=== PATIENT | female | born 1970 | race Caucasian/White ===

== ENCOUNTER 2018-02-08 10:15 | Day surgery (SDC) | payer BC ==
[2018-01-31 11:08] VITALS: BMI 34.7
[2018-02-08] MEDS ORDERED: CEFAZOLIN/Water 2 GM/20 ML SYRINGE ONE (10:55)
[2018-02-08] MEDS ORDERED: Heparin 5,000 UNITS/ML VIAL ONE (10:55)
[2018-02-08] MEDS ORDERED: Midazolam HCl 2 mg/2 ml Vial ONE (10:56)
[2018-02-08] MEDS ORDERED: Fentanyl 100 MCG/2 ML VIAL ONE ×6 (10:56→17:38)
[2018-02-08] MEDS ORDERED: HYDROcodone/Acetaminophen 10/325 mg Tablet PO PRN ×2 (11:57)
[2018-02-08] MEDS ORDERED: Promethazine HCl 25 MG/ML VIAL IM PRN (11:57)
[2018-02-08] MEDS ORDERED: Fentanyl 100 MCG/2 ML VIAL SLOW IVP PRN (11:57)
[2018-02-08] MEDS ORDERED: Zolpidem Tartrate 5 MG TAB PO PRN (11:57)
[2018-02-08] MEDS ORDERED: Ondansetron HCl/PF 4 MG/2 ML Vial IVP PRN (11:57)
[2018-02-08] MEDS ORDERED: traMADol HCl 50 MG TAB PO PRN ×2 (11:57)
[2018-02-08] MEDS ORDERED: Ropivacaine 0.2% 550 ML 550 ML NERVE BLCK SCH ×2 (11:57→12:00)
[2018-02-08] MEDS ORDERED: Ketorolac Tromethamine 30 MG/ML VIAL IVP SCH (12:00)
[2018-02-08] MEDS ORDERED: Ropivacaine 0.2% HCl/PF 20 ML ONE ×2 (13:09→17:44)
[2018-02-08] MEDS ORDERED: Bupivacaine/Epinephrine 0.25% 30 ML VIAL ONE ×2 (13:18→13:24)
[2018-02-08] MEDS ORDERED: Gentamicin 80 MG/2 ML VIAL ONE (13:18)
[2018-02-08] MEDS ORDERED: Sodium Chloride 0.9% 20 ML ONE (13:24)
[2018-02-08] MEDS ORDERED: Ropivacaine 0.5% HCl/PF (150 MG/30 ML VIAL) ONE (17:10)
[2018-02-08] MEDS ORDERED: Ketorolac Tromethamine 30 MG/ML VIAL ONE (17:23)
[2018-02-08] MEDS ORDERED: Lidocaine 1% PF 5 ML VIAL ONE (17:23)
[2018-02-08] MEDS ORDERED: PROPOFOL 200 MG/20 ML VIAL ONE (17:23)
--- NOTE | 2018-02-09 11:16 | OP ---
DATE OF PROCEDURE: 02/08/2018 PREOPERATIVE DIAGNOSES: 1. Breast cancers. 2. Status post left chest radiation. PROCEDURES: 1. Placement of bilateral breast implants for delayed reconstruction (85207.50). 2. Scar revision of right breast (19 cm), (10274, 62908 x3). OPERATIVE FINDINGS: 1. Right breast implant [place], reference #[id number], serial #[id number]. 2. Left breast implant, reference #[id number], serial #[id number]. DESCRIPTION OF PROCEDURE: Following induction of adequate anesthesia, the patient was prepped and dr aped in usual sterile fashion in the supine position. Attention was first turned to the left breast. muscle was inspected. Muscle did not to perform a submuscular breast reconstruction. Therefore, adequate submuscular pocket was created with release of the inferior attachments of the p ectoralis major muscle. A great deal of scar tissue was made where it was encountered on the axillar y portion of the dissection at approximately the mastectomy scar line. This scar had to be extensive ly relieved to allow for adequate pocket. Pocket was copiously irrigated with antibiotic solut ion Betadine appropriate fit. contralateral right side, similar procedure was per formed. dissecting the scar. The patient had some sort of wound healing difficulty. This left her wi th a significant contour deformity, a large approximately 5 cm x 3 cm x cm deep. The m ost appropriate contour was done by excising the old scar and de-epithelializing a large ellipse of s kin including the old scar and then closing this in a alyov-exem-utbi fashion and layered with 3-0 Mo nocryl suture followed by running 3-0 Monocryl suture for the skin. The skin was also copiously irr igated and inspected for meticulous hemostasis prior to the closure. The patient tolerated the proce dure well .
== END 2018-02-08 19:28 | disposition home or self-care (01) ==
LOC: SDC 10:15
PROVIDERS: ATTEND Plastic Surgery
PROC: 0HBTXZZ (ICD-10-PCS; principal; 2018-02-08)
PROC: 0HRV0JZ Replacement of Bilateral Breast with Synthetic Substitute, Open Approach (ICD-10-PCS; principal; 2018-02-08)
DX: Z42.1 Encounter for breast reconstruction following mastectomy (principal); C50.919 Malignant neoplasm of unspecified site of unspecified female breast; E78.5 Hyperlipidemia, unspecified; F32.9 Major depressive disorder, single episode, unspecified; F41.9 Anxiety disorder, unspecified; F17.210 Nicotine dependence, cigarettes, uncomplicated; Z79.811 Long term (current) use of aromatase inhibitors; Z79.899 Other long term (current) drug therapy
CPT/HCPCS: 36416; A4216; A4306; J0131; J1580; J1644; J1885; J2001; J2250; J2704; J2795; J3010; J3370; J3490

== ENCOUNTER 2018-08-12 07:02 | Day surgery (SDC) | payer BC ==
[2018-08-09 10:53] VITALS: BMI 30.7
[2018-08-12] MEDS ORDERED: Heparin 5,000 UNITS/ML VIAL ONE (07:38)
[2018-08-12] MEDS ORDERED: CEFAZOLIN/Water 2 GM/20 ML SYRINGE ONE (07:38)
[2018-08-12] MEDS ORDERED: EPINEPHrine 1 MG/ML AMP ONE (09:11)
[2018-08-12] MEDS ORDERED: Lidocaine 1% (PF) 30 ML VIAL ONE (09:11)
[2018-08-12] MEDS ORDERED: Fentanyl 100 MCG/2 ML VIAL ONE (09:15)
[2018-08-12] MEDS ORDERED: Bupivacaine/Epinephrine 0.25% 30 ML VIAL ONE (09:18)
[2018-08-12] MEDS ORDERED: Gentamicin 80 MG/2 ML VIAL ONE (10:01)
[2018-08-12] MEDS ORDERED: Sodium Chloride 0.9% 20 ML ONE (10:02)
--- NOTE | 2018-08-12 12:10 | OP ---
PREOPERATIVE DIAGNOSES: 1. History of breast cancer. 2. Asymmetry of breast reconstruction. PROCEDURE PERFORMED: 1. Revision of breast reconstruction, 2. Internal [place] flap, 24103. PROCEDURE: Following induction of adequate anesthesia, the patient was prepped and draped in usual sterile fashion in supine position. The patient was noted to have asymmetric breasts with the right inframammary crease lower than the radiated left. A 3 x 20 cm ellipse of skin was epithelialized. Dissection was carried sharply down to the capsule. Capsular flaps were then elevated inferiorly to recreate the new crease in an elevated position. The capsule was inserted into the superior internal flap in a vibst-ruuy-qaga fashion with 3-0 PDS suture. The inferior flap was then advanced superiorly and secured to the new crease with interrupted and running 2-0 PDS suture. The remainder of the closure was done with 3-0 PDS suture and 3-0 Monocryl suture. The patient also had a distal portion of the same breast with fullness medially and laterally along her mastectomy scars as well as indention superiorly. To correct this, Tumescent fluid was infiltrated into the abdomen and breast. Liposuction was then performed and the full area of the breast medially and laterally breast. Fat was then harvested from her right abdomen, allowed to separate and then entered. It was then injected with microdroplet technique through the superior pole. The patient tolerated the procedure well. [facility]
[2018-08-12] MEDS ORDERED: Morphine 4 MG/ML VIAL ONE (12:29)
[2018-08-12] MEDS ORDERED: Ketorolac Tromethamine 30 MG/ML VIAL ONE (14:51)
[2018-08-12] MEDS ORDERED: PROPOFOL 200 MG/20 ML VIAL ONE (14:51)
[2018-08-12] MEDS ORDERED: ePHEDrine/0.9% NaCl/PF SYRINGE 50 mg/10 ml ONE (14:51)
[2018-08-12] MEDS ORDERED: PHENYLEPHRINE-NS 100 MCG/ML 10 ML SYRINGE ONE (14:51)
[2018-08-12] MEDS ORDERED: Lidocaine 1% PF 5 ML VIAL ONE (14:51)
[2018-08-12] MEDS ORDERED: Dexamethasone 20 MG/5 ML VIAL ONE (14:51)
== END 2018-08-12 14:50 | disposition home or self-care (01) ==
LOC: SDC 07:02
PROVIDERS: ATTEND Plastic Surgery
PROC: 0H0T07Z Alteration of Right Breast with Autologous Tissue Substitute, Open Approach (ICD-10-PCS; principal; 2018-08-12)
DX: N65.1 Disproportion of reconstructed breast (principal); M19.90 Unspecified osteoarthritis, unspecified site; E66.3 Overweight; Z68.30 Body mass index [BMI] 30.0-30.9, adult; Z87.891 Personal history of nicotine dependence; Z85.3 Personal history of malignant neoplasm of breast; Z90.13 Acquired absence of bilateral breasts and nipples; Z79.899 Other long term (current) drug therapy; Z79.811 Long term (current) use of aromatase inhibitors
CPT/HCPCS: 88305; 93005; 93010; 96374; J0131; J0171; J1100; J1580; J1644; J1885; J2001; J2270; J2704; J3010; J3370; J3490

== ENCOUNTER 2019-01-31 10:11 | Outpatient (CLI) | payer BC ==
--- NOTE | 2019-01-31 10:52 | BD ---
DEXA BONE DENSITY: HISTORY: A 48-year-old female for screening study. COMPARISON: None. FINDINGS: Lumbar Spine: BMD (g/cm2) L1 0.768 T-Score: -2.0 -1.4 L2 0.850 T-Score: -1.6 -1.0 L3 0.847 T-Score: -2.2 -1.5 L4 0.850 T-Score: -1.9 -1.2 L1-L4 0.830 T-Score: -2.0 -1.3 Femoral Neck: 0.832 T-Score: -0.2 0.5 Total Femur: 1.033 T-Score: 0.7 1.2 Impression: Lumbar spine: WHO classification is osteopenia; fracture risk is increased. Femoral neck: WHO classification is normal. Ten-year fracture risk for major osteoporotic fracture i s 3.2% and for a hip fracture is 0.1%. POS: OFF
== END 2019-01-31 10:12 | disposition home or self-care (01) ==
LOC: BICMAMMO 10:11
PROVIDERS: ATTEND Internal Medicine Medical Oncology
DX: C50.412 Malignant neoplasm of upper-outer quadrant of left female breast (principal); T38.6X5A Adverse effect of antigonadotrophins, antiestrogens, antiandrogens, not elsewhere classified, initial encounter; M85.88 Other specified disorders of bone density and structure, other site
CPT/HCPCS: 77080

== ENCOUNTER 2020-12-29 08:28 | Outpatient (CLI) | payer BC | END 2020-12-29 08:29 | disposition home or self-care (01) | LOC: BICRAD 08:28 | PROVIDERS: ATTEND Family Medicine | DX: M47.22 Other spondylosis with radiculopathy, cervical region (principal); M43.16 Spondylolisthesis, lumbar region | CPT/HCPCS: 72100 ==

== ENCOUNTER 2021-06-02 09:30 | Inpatient (IN) | payer BC, OTHER ==
[2021-06-06 10:15] VITALS: BMI 35.2
[2021-06-07] MEDS ORDERED: Tranexamic Acid 1,000 MG/10 ML VIAL ONE (10:06)
[2021-06-07] MEDS ORDERED: Sodium Chloride 0.9% 100 ML ONE (10:06)
[2021-06-07] MEDS ORDERED: Fentanyl 100 MCG/2 ML VIAL ONE ×3 (10:14→14:02)
[2021-06-07] MEDS ORDERED: Midazolam HCl 2 mg/2 ml Vial ONE (10:14)
[2021-06-07] MEDS ORDERED: Vancomycin HCl 1.5 GM in Sodium Chloride 0.9% 250 ML 300 ML IVPB SCH ×2 (10:15→23:59)
[2021-06-07] MEDS ORDERED: Fentanyl 100 MCG/2 ML VIAL IV PRN (11:08)
[2021-06-07] MEDS ORDERED: Ropivacaine 0.2% 550 ML 550 ML NERVE BLCK SCH (11:15)
[2021-06-07] MEDS ORDERED: traMADol HCl 50 MG TAB PO PRN ×3 (11:15→14:17)
[2021-06-07] MEDS ORDERED: Ondansetron PF 4 MG/2 ML Vial IVP PRN ×2 (11:15→14:17)
[2021-06-07] MEDS ORDERED: HYDROcodone/Acetaminophen 10/325 mg Tablet PO PRN ×4 (11:15→14:17)
[2021-06-07] MEDS ORDERED: Promethazine HCl 25 MG/ML VIAL IM PRN ×2 (11:15→14:17)
[2021-06-07] MEDS ORDERED: Zolpidem Tartrate 5 MG TAB PO PRN ×2 (11:15→14:17)
[2021-06-07] MEDS ORDERED: Bupivacaine 0.25% HCL 30 ML VIAL ONE (11:28)
[2021-06-07] MEDS ORDERED: EPINEPHrine 1 MG/ML AMP ONE (11:29)
[2021-06-07] MEDS ORDERED: Bupivacaine HCl 0.5%/Epinephrine 1:200,000/PF 30 ml Vial ONE (11:48)
[2021-06-07] MEDS ORDERED: Ondansetron PF 4 MG/2 ML Vial ONE (11:48)
[2021-06-07] MEDS ORDERED: Lidocaine 1% PF 5 ML VIAL ONE (11:48)
[2021-06-07] MEDS ORDERED: Ketorolac Tromethamine 30 MG/ML VIAL ONE (11:48)
[2021-06-07] MEDS ORDERED: PROPOFOL 200 MG/20 ML VIAL ONE (11:48)
[2021-06-07] MEDS ORDERED: ePHEDrine 50 MG/ML VIAL ONE (11:48)
[2021-06-07] MEDS ORDERED: Ropivacaine 2% HCl/PF (20 MG/10 ML VIAL) ONE (11:48)
[2021-06-07] MEDS ORDERED: Ketorolac Tromethamine 30 MG/ML VIAL IVP SCH (12:00)
[2021-06-07] MEDS ORDERED: Acetaminophen 325 MG TAB PO PRN (14:17)
[2021-06-07] MEDS ORDERED: Fentanyl 100 MCG/2 ML VIAL SLOW IVP PRN ×2 (14:17)
[2021-06-07] MEDS ORDERED: diphenhydrAMINE 25 MG CAP PO PRN (14:17)
[2021-06-07] MEDS ORDERED: SEMAGLUTIDE SC SCH (17:00)
[2021-06-07] MEDS: Sodium Chloride 0.9% 1,000 ML IV SCH ×2 (17:02→20:52)
[2021-06-07] MEDS: Gabapentin 300 MG CAP PO SCH (20:11)
[2021-06-07] MEDS: CEFAZOLIN 2 GM in Premix Bag 1 BAG IVPB SCH (20:11)
[2021-06-07] MEDS: Senokot S 8.6-50 MG TAB PO SCH (20:12)
[2021-06-07] MEDS: Ferrous Gluconate 324 MG TAB PO SCH (20:12)
[2021-06-07] MEDS: DULoxetine 60 MG CAP PO SCH (20:12)
[2021-06-07] MEDS: Apixaban 2.5 MG TAB PO SCH ×2 (20:12→20:45)
[2021-06-07] MEDS: metFORMIN 500 MG TAB PO SCH (20:12)
[2021-06-07] MEDS: Atorvastatin Calcium 10 MG TAB PO SCH (20:16)
[2021-06-07] MEDS: Ketorolac Tromethamine 30 MG/ML VIAL IVP SCH (20:43)
[2021-06-08] MEDS ORDERED: HYDROcodone/Acetaminophen 10/325 mg Tablet PO PRN (02:39)
[2021-06-08] MEDS ORDERED: traMADol HCl 50 MG TAB PO PRN ×2 (02:39→02:40)
[2021-06-08] MEDS ORDERED: Fentanyl 100 MCG/2 ML VIAL SLOW IVP PRN ×2 (02:40)
[2021-06-08] MEDS ORDERED: Acetaminophen 325 MG TAB PO PRN (02:40)
[2021-06-08] MEDS: HYDROcodone/Acetaminophen 10/325 mg Tablet PO PRN ×4 (02:43→21:15)
[2021-06-08] MEDS: CEFAZOLIN 2 GM in Premix Bag 1 BAG IVPB SCH (02:48)
[2021-06-08] MEDS ORDERED: Ketorolac Tromethamine 30 MG/ML VIAL ONE (05:06)
[2021-06-08 05:39] LABS: Hemoglobin 12.1 g/dL (12.0-16.0); Mean Corpuscular HGB CONC 32.9 g/dL (32.0-36.0); Mean Corpuscular Hemoglobin 31.3 pg (27.0-31.0); Mean Corpuscular Volume 95.2 fL (78.0-98.0); Mean Platelet Volume 7.2 fL (7.4-10.4); Platelet Count 262 thou/uL (130-400); RBC Distribution Width 12.8 % (11.5-14.5); Red Blood Cell (RBC) Count 3.85 mill/uL (4.20-5.40); White Blood Cell (WBC) Count 9.3 thou/uL (4.8-10.8)
[2021-06-08] MEDS: Levothyroxine Sodium 100 MCG TAB PO SCH (06:05)
[2021-06-08] MEDS: Ketorolac Tromethamine 30 MG/ML VIAL IVP SCH ×3 (06:06→23:13)
[2021-06-08] MEDS ORDERED: HumaLOG 300 UNITS/3 ML VIAL SC PRN (07:18)
[2021-06-08] MEDS ORDERED: Dextrose 5% in Water 1,000 ML IV PRN (07:18)
[2021-06-08] MEDS ORDERED: Dextrose 50% Abboject 50 ML SYRINGE SLOW IVP PRN (07:18)
[2021-06-08 08:08] LABS: Glucose 139 mg/dL (70-105)
[2021-06-08] MEDS: Calcium Carbonate 600 MG TAB PO SCH (09:03)
[2021-06-08] MEDS: Cyanocobalamin (Vitamin B-12) 1,000 MCG TAB PO SCH (09:04)
[2021-06-08] MEDS: Valsartan 80 MG TAB PO SCH (09:04)
[2021-06-08] MEDS: Hydrochlorothiazide 25 MG TAB PO SCH (09:04)
[2021-06-08] MEDS: Gabapentin 300 MG CAP PO SCH ×2 (09:04→21:16)
[2021-06-08] MEDS: Bupropion 150 MG XL TAB PO SCH (09:04)
[2021-06-08] MEDS: Senokot S 8.6-50 MG TAB PO SCH ×2 (09:56→23:09)
[2021-06-08] MEDS: Ferrous Gluconate 324 MG TAB PO SCH ×2 (09:56→23:09)
[2021-06-08] MEDS: Apixaban 2.5 MG TAB PO SCH ×2 (09:56→23:09)
[2021-06-08] MEDS: Multivitamin W/ Minerals 1 TAB PO SCH (09:56)
[2021-06-08] MEDS: Sodium Chloride 0.9% 1,000 ML IV SCH ×2 (10:21→21:18)
[2021-06-08 11:50] LABS: Glucose 169 mg/dL (70-105)
[2021-06-08 17:44] LABS: Glucose 164 mg/dL (70-105)
[2021-06-08] MEDS: Atorvastatin Calcium 10 MG TAB PO SCH (21:16)
[2021-06-08] MEDS: metFORMIN 500 MG TAB PO SCH (21:16)
[2021-06-08 21:23] LABS: Glucose 177 mg/dL (70-105)
[2021-06-09] MEDS: HYDROcodone/Acetaminophen 10/325 mg Tablet PO PRN (02:41)
[2021-06-09 05:24] LABS: Hemoglobin 11.6 g/dL (12.0-16.0); Mean Corpuscular HGB CONC 34.4 g/dL (32.0-36.0); Mean Corpuscular Hemoglobin 32.4 pg (27.0-31.0); Mean Corpuscular Volume 94.1 fL (78.0-98.0); Platelet Count 276 thou/uL (130-400); RBC Distribution Width 12.4 % (11.5-14.5); Red Blood Cell (RBC) Count 3.59 mill/uL (4.20-5.40); White Blood Cell (WBC) Count 8.3 thou/uL (4.8-10.8)
[2021-06-09] MEDS: Ketorolac Tromethamine 30 MG/ML VIAL IVP SCH (05:47)
[2021-06-09] MEDS: Levothyroxine Sodium 100 MCG TAB PO SCH (05:47)
[2021-06-09] MEDS: Sodium Chloride 0.9% 1,000 ML IV SCH (06:47)
[2021-06-09 08:13] VITALS: BP 144/85; TEMP 98.2
[2021-06-09] MEDS: Calcium Carbonate 600 MG TAB PO SCH (09:46)
[2021-06-09] MEDS: Valsartan 80 MG TAB PO SCH (09:46)
[2021-06-09] MEDS: Cyanocobalamin (Vitamin B-12) 1,000 MCG TAB PO SCH (09:47)
[2021-06-09] MEDS: Bupropion 150 MG XL TAB PO SCH (09:47)
[2021-06-09] MEDS: Gabapentin 300 MG CAP PO SCH (09:47)
[2021-06-09] MEDS: Hydrochlorothiazide 25 MG TAB PO SCH (09:49)
[2021-06-09] MEDS: Multivitamin W/ Minerals 1 TAB PO SCH (10:11)
[2021-06-09] MEDS: Apixaban 2.5 MG TAB PO SCH (10:12)
[2021-06-09] MEDS: Ferrous Gluconate 324 MG TAB PO SCH (10:12)
[2021-06-09] MEDS: Senokot S 8.6-50 MG TAB PO SCH (11:03)
== END 2021-06-09 11:34 | disposition home or self-care (01) | DRG 470 ==
LOC: 2NO 06-07 09:05 → SURG B 06-07 16:16
PROVIDERS: ADMIT Orthopaedic Surgery; ATTEND Orthopaedic Surgery
PROC: 0SRC0J9 Replacement of Right Knee Joint with Synthetic Substitute, Cemented, Open Approach (ICD-10-PCS; principal; 2021-06-07)
DX: M17.11 Unilateral primary osteoarthritis, right knee (principal); I10 Essential (primary) hypertension; E11.9 Type 2 diabetes mellitus without complications; E03.9 Hypothyroidism, unspecified; E78.5 Hyperlipidemia, unspecified; F32.9 Major depressive disorder, single episode, unspecified; F17.210 Nicotine dependence, cigarettes, uncomplicated; Z85.3 Personal history of malignant neoplasm of breast; Z79.82 Long term (current) use of aspirin; Z79.84 Long term (current) use of oral hypoglycemic drugs; Z90.49 Acquired absence of other specified parts of digestive tract; Z98.890 Other specified postprocedural states; Z90.13 Acquired absence of bilateral breasts and nipples
CPT/HCPCS: 36415; 36416; 82947; 85027; A4306; C1713; C1776; J0171; J0690; J1815; J1885; J2250; J2405; J2704; J2795; J3010; J3370; J3490; J7050; S0020